=== PATIENT | male | born 1975 | race Caucasian/White ===

== ENCOUNTER 2016-12-18 11:11 | Day surgery (SDC) | payer BC ==
[~2016-12-18] VITALS: Ht 180.3 cm; Wt 100.1 kg
[2016-12-18] VITALS (16 sets, daily range): BP systolic 122–139; BP diastolic 70–97; PULSE 78–96; RESP 14–22; Ht 180.3 cm; Wt 100.1 kg
[~2016-12-18 11:11] MED LIST: LACTATED RINGER'S 1,000 ML IV* SCH; PROPOFOL 200 MG INJ ONE
[2016-12-18] MEDS ORDERED: DEXT5TAB17 PO (11:22)
[2016-12-18] MEDS ORDERED: HYDR-902 PO (11:23)
[2016-12-18] MEDS ORDERED: POLYMYXIN/BACITRACIN 1L IRRIG ONE (13:26)
[2016-12-18] MEDS ORDERED: METOCLOPRAMIDE 10 MG INJ ONE (13:47)
[2016-12-18] MEDS ORDERED: MIDAZOLAM 1 MG/ML 2 ML INJ ONE (13:47)
--- NOTE | 2016-12-18 13:47 | HPN ---
Date/Time of Note Date/Time of Note DATE: 12/18/16 TIME: 13:47 Interval H&P Admission Note Pt. seen H&P reviewed: No system changes THEO TEJADA Dec 18, 2016 13:47
[2016-12-18] MEDS ORDERED: CEFAZOLIN 1 GM INJ ONE (13:51)
[2016-12-18] MEDS ORDERED: FENTAnyl 50 MCG/ML VIAL ONE (13:51)
[2016-12-18] MEDS ORDERED: BUPIVACAINE 0.5% (SDV) 30 ML INJ ONE (14:13)
[2016-12-18] MEDS ORDERED: KETOROLAC 30 MG INJ ONE (14:15)
[2016-12-18] MEDS ORDERED: ONDANSETRON 4 MG INJ IV PRN (14:30)
[2016-12-18] MEDS ORDERED: OXYCODONE/ACETAMINOPHEN (5/325) TAB PO PRN ×2 (14:30)
[2016-12-18] MEDS ORDERED: HYDROmorphONE (0.2 MG/ML) 10ML SYG IV PRN ×2 (14:30)
--- NOTE | 2016-12-18 14:39 | OPPN ---
Date/Time of Note Date/Time of Note DATE: 12/18/16 TIME: 14:39 Operative Report Preoperative Diagnosis right small finger metacarpal neck fracture Postoperative Diagnosis right small finger metacarpal neck fracture Operation/Procedure Performed closed reduction percutaneous pinning right small finger metacarpal neck fracture Surgeon see signature line speech correction assistant none Anesthesia: general Estimated blood loss: 0 - 10 ml's Transfusion Required none Specimen none Grafts/Implants none Complications none THEO TEJADA Dec 18, 2016 14:39
--- NOTE | 2016-12-18 14:39 | OPPN ---
Date/Time of Note Date/Time of Note DATE: 12/18/16 TIME: 14:39 Operative Report Preoperative Diagnosis right small finger metacarpal neck fracture Postoperative Diagnosis right small finger metacarpal neck fracture Operation/Procedure Performed closed reduction percutaneous pinning right small finger metacarpal neck fracture Surgeon see signature line assistant front end manager none Anesthesia: general Estimated blood loss: 0 - 10 ml's Transfusion Required none Specimen none Grafts/Implants none Complications none THEO TEJADA Dec 18, 2016 14:39
--- NOTE | 2016-12-18 14:39 | OPPN ---
Date/Time of Note Date/Time of Note DATE: 12/18/16 TIME: 14:39 Operative Report Preoperative Diagnosis right small finger metacarpal neck fracture Postoperative Diagnosis right small finger metacarpal neck fracture Operation/Procedure Performed closed reduction percutaneous pinning right small finger metacarpal neck fracture Surgeon see signature line assistant paralegal none Anesthesia: general Estimated blood loss: 0 - 10 ml's Transfusion Required none Specimen none Grafts/Implants none Complications none THEO TEJADA Dec 18, 2016 14:39
[2016-12-18] MEDS: HYDROmorphONE (0.2 MG/ML) 10ML SYG IV PRN ×2 (15:21→15:53)
--- NOTE | 2016-12-18 17:16 | OPR ---
DATE OF OPERATION: 12/18/2016 SURGEON: Narayan Pittman MD ANESTHESIA: General. PREOPERATIVE DIAGNOSIS: Right small finger metacarpal neck fracture. POSTOPERATIVE DIAGNOSIS: Right small finger metacarpal neck fracture. OPERATION PERFORMED: Closed reduction, percutaneous pinning, right small finger metacarpal neck fracture. OPERATIVE FINDINGS AT SURGERY: Displaced right small finger metacarpal neck fracture. INDICATION FOR PROCEDURE: A 41-year-old male with injury to the right hand. He was diagnosed with a right small finger metacarpal neck fracture in clinic and options were discussed. He elected to proceed with surgical intervention understanding the risks, benefits. OPERATIVE PROCEDURE: The patient was seen in the preoperative area and all further questions were answered. Again, he gave informed consent understanding the risks, benefits. He was taken to the operative suite and placed in supine position. He was placed under general anesthesia and tourniquet placed on the right upper extremity. Ancef 2 grams IV given and right upper extremity was prepped with ChloraPrep stick and draped in usual sterile fashion. A C-arm was brought in and closed reduction was performed under fluoroscopic imaging. After adequate reduction was obtained, two 0.045 K-wires were driven retrograde from the collateral recess across the fracture site into the metacarpal base. X-ray imaging showed acceptable bony alignment which was near anatomic and acceptable hardware placement. Pins were cut short. Pin caps placed. Xeroform placed on the wound followed by sterile gauze, Webril, and a short-arm ulnar gutter splint. Patient was awakened from anesthesia and taken to the postoperative suite in stable condition and tolerated the procedure well without complication. SPECIMENS: None. ESTIMATED BLOOD LOSS: 5 mL. COUNTS: Sponge, instrument and needle counts correct. TOURNIQUET TIME: Not applicable. FLUOROSCOPIC IMAGES: 3. CONDITION ON DISCHARGE: Stable. Dictated By: Narayan Pittman MD /casper/saundra /Document#: [id number] MTDD
--- NOTE | 2016-12-18 23:23 | RADRPT ---
PROCEDURE: Intraoperative imaging of the right hand with fluoroscopy. CLINICAL INDICATION: Right hand pain. Intraoperative. TECHNIQUE: 3 images of the right hand were obtained in the operating room with an image intensifie r. No radiologist was in attendance. Fluoroscopy time is 7 seconds. COMPARISON: No prior study is available for comparison. FINDINGS: Images demonstrate open reduction and internal fixation of the fracture of the fifth metacarpal with 2 wires. IMPRESSION: 1. Intraoperative imaging of the right hand. RPTAT: QQ .Adam Patton MD, MD Date Time Electronically viewed and signed by .Adam Patton MD, on 12/18/2016 23:23 .R/
== END 2016-12-18 17:00 | disposition home or self-care (01) ==
LOC: SDS 11:11
PROVIDERS: ATTEND Orthopaedic Surgery Hand Surgery
DX: S62.336A Displaced fracture of neck of fifth metacarpal bone, right hand, initial encounter for closed fracture (principal); X58.XXXA Exposure to other specified factors, initial encounter; Y93.89 Activity, other specified; Y92.89 Other specified places as the place of occurrence of the external cause
CPT/HCPCS: 26608; 73130; C1713; J0690; J1170; J1885; J2250; J2765; J3010